=== PATIENT | female | born 1930 | race Caucasian/White ===

== ENCOUNTER 2016-04-06 12:14 | Emergency (ER) | payer MEDICARE ==
--- NOTE | 2016-04-06 13:17 | CT ---
NONCONTRAST CT OF THE BRAIN 04/06/16 INDICATION: Altered mental status. COMPARISON: Prior exam dated 06/09/15. FINDINGS: No acute infarct, hemorrhage or hydrocephalus is present. 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 Small subcortical hypodensity involving the left frontal lobe on image 18 of series 2 is stable to the prior. Skull and extracranial soft tissu es are unremarkable. IMPRESSION: 1. No acute intracranial abnormality demonstrated. 2. 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 3. Stable small hypodensity involving the subcortical white matter of the left frontal lobe pos sibly related to chronic ischemic change versus perivascular space. POS: [facility]
[2016-04-06 13:27] LABS: #Lymphocytes 0.8 thou/uL (1.20-3.40); #Monocytes 0.3 thou/uL (0.11-0.59); #Neutrophils 4.3 thou/uL (1.40-6.50); %Basophils 0.8 % (0.0-1.0); %Eosinophils 0.6 % (0.0-10.0); %Monocytes 5.5 % (0.0-10.0); %Neutrophils 79.1 % (42.0-75.0); Hemoglobin 13.5 g/dL (12.0-16.0); Mean Corpuscular HGB CONC 32.2 g/dL (32.0-36.0); Mean Corpuscular Hemoglobin 31.1 pg (27.0-31.0); Mean Corpuscular Volume 96.4 fl (81.0-99.0); Mean Platelet Volume 9.6 fL (7.4-10.4); Platelet Count 139 thou/uL (130-400); RBC Distribution Width 13.1 % (11.5-14.5); Red Blood Cell (RBC) Count 4.33 mill/uL (4.20-5.40); White Blood Cell (WBC) Count 5.4 thou/uL (4.8-10.8)
[2016-04-06 13:41] LABS: ALT (SGPT) 13 U/L (0-55); AST (SGOT) 22 U/L (5-34); Albumin 3.8 g/dL (3.4-4.8); Alkaline Phosphatase 72 U/L (40-150); Anion Gap 13 mmol/L (10-20); BUN (Urea Nitrogen) 18 mg/dL (9.8-20.1); Bilirubin, Total 0.8 mg/dL (0.2-1.2); Calc. Creatinine Clearance 0 mL/min (70-130); Calcium 9.7 mg/dL (7.8-10.44); Carbon Dioxide 32 mmol/L (23-31); Chloride 102 mmol/L (98-107); Estimated GFR-MDRD 76; Globulin 3.1 g/dL (2.4-3.5); Glucose 125 mg/dL (83-110); Potassium 3.7 mmol/L (3.5-5.1); Protein, Total 6.9 g/dL (5.8-8.1); Sodium 143 mmol/L (136-145)
[2016-04-06 13:44] LABS: Blood, Urine Moderate (Negative); Clarity Clear (Clear); Glucose, Urine (Dipstick) Negative (Negative); Leukocyte Negative (Negative); Nitrite Negative (Negative); Protein, Urine (Dipstick) 30 mg/dL (Neg-Trace)
[2016-04-06 13:46] LABS: Bilirubin Negative (Negative); Icto Negative (Negative)
[2016-04-06 13:48] LABS: Bacteria/HPF Rare-Few HPF (None Seen); Squamous Epithelial 0-3 HPF (0-3); WBC/HPF 0-3 HPF (0-3)
--- NOTE | 2016-04-06 16:30 | ERRECORD ---
[facility] EMERGENCY RECORD HPI MENTAL STATUS CHANGES (13:00 ALMO) CHIEF COMPLAINT: Patient presents for evaluation of mental status changes, Patient presents for evaluation of Began with a fall at home. HISTORIAN: History provided by patient's family, son. LOCATION: No localizing symptoms. QUALITY: [place] coma score, Eye opening: (4) - Spontaneous, Verbal: (2) - Incomprehensible sounds, Motor: (5) - Localizes Pain, GCS Total: 11, Described as similar to previous episodes, Had a fall a year ago but no mental status change. Her baseline is normal. SEVERITY: Maximum severity of symptoms moderate, Currently symptoms are moderate. TIME COURSE: Sudden onset of symptoms, just prior to arrival. ASSOCIATED WITH: unable to determine due to mental status. EXACERBATED BY: Patient's condition exacerbated by nothing. RELIEVED BY: Patient's condition relieved by nothing. RISK FACTORS: CVA/TIA risk factors, Hypertension, Subarachnoid hemorrhage risk factors, include Fall. ROS (13:06 ALMO) NOTES: Systems not reviewed; unable. PAST MEDICAL HISTORY (12:23 MDEB) MEDICAL HISTORY: Flu vaccine not up to date, Tetanus immunization up to date, Pneumococcal vaccine up to date, Past medical history includes history of hyperlipidemia, high cholesterol, Past medical history includes history of hypertension, which has been treated, Past medical history includes cardiac history, unspecified arrhythmia, Past medical history includes history of hyperlipidemia, high cholesterol, Past medical history includes skin history, SKIN ISSUE -1615. PT TAKING PREDNISONE PER , No past medical history, Flu vaccine not up to date, Tetanus not up to date, Pneumococcal vaccine not up to date, Past medical history includes history of hypertension. --16. FEMALE SURGICAL HISTORY: Surgical history of cholecystectomy. --16. PSYCHIATRIC HISTORY: No previous psychiatric history. --16. SOCIAL HISTORY: Patient has no smoking history, Patient denies alcohol use, Patient denies drug use. KNOWN ALLERGIES aspirin Iodides iodine shellfish derived CURRENT MEDICATIONS &a-1R&a+25V*p+0X*x7371T*c202B*c15G*c2P*p-0X&a-25V&a+1R Name: Justin Noe : 1930 F85 MedRec: [id number] AcctNum: [id number] Prepared: WedApr 06, 2016 16:28 by Interface Page 1 of 2 pMD [facility] EMERGENCY RECORD No recorded medications VITAL SIGNS (12:20 MDEB) VITAL SIGNS: BP: 170/95, Pulse: 78, Resp: 16, Temp: 97.6 (Tympanic), Pain: 0, O2 sat: 98 on Room Air, Time: 04/06/2016 12:20. PHYSICAL EXAM (13:06 ALMO) CONSTITUTIONAL: Vital Signs Reviewed. HEAD: Head exam included findings of head atraumatic, normocephalic. EYES: Pupils equally round and reactive to light, Extraocular muscles intact. ENT: Mouth exam normal. NECK: Trachea midline, Thyroid normal, Atraumatic, no carotid bruits, no meningeal signs, no jugular venous distention, no cervical adenopathy. RESPIRATORY CHEST: Respiratory exam included findings of no respiratory distress, Breath sounds clear. CARDIOVASCULAR: Cardiovascular exam included findings of heart rate regular rate and rhythm, Heart sounds normal, no murmurs. ABDOMEN FEMALE: Abdominal exam included findings of abdomen nontender, Bowel sounds normal, Liver normal, Spleen normal. BACK: Back exam included findings of normal inspection. NEURO: Speech, garbled, Gait normal, Nahid coma scale, GCS Total: 11, Cranial nerves intact, no focal motor deficits, NIH SS = 8. SKIN: Skin exam normal. PROBLEM LIST No recorded problems DIAGNOSIS (16:24 ALMO) FINAL: PRIMARY: ALTERED MENTAL STATUS UNSPECIFIED vs Stroke. PRESCRIPTION No recorded prescriptions DISPOSITION PATIENT: Disposition Type: Discharge, Disposition: *Discharge Home. (16:24 ALMO) Disposition Type: Transfer, Disposition: Transfer to [facility], Patient left the department. (16:26 MDEB) Morgan: JIMENA=MD Spenser, Hal MDEB=JAVED Verdugo, Alisa &a-1R&a+25V*p+0X*[id number]*c202B*c15G*c2P*p-0X&a-25V&a+1R Name: Justin Noe : 1930 F85 MedRec: [id number] AcctNum: [id number] Prepared: WedApr 06, 2016 16:28 by Interface Page 2 of 2 pMD [facility]
--- NOTE | 2016-04-06 16:36 | PICIS ---
[facility] EMERGENCY RECORD COMMUNICATIONS (15:19 AWAT) COMMUNICATIONS: Notes: DR ESPINOSA AT [facility] ER IN [place] ACCEPTS PT FOR TRANSFER AT THIS TIME. TRIAGE (12:23 MDEB) PATIENT: NAME: Justin Noe, AGE: 85, GENDER: female, : Sun 1930, TIME OF GREET: WedApr 06, 2016 12:15, PREFERRED LANGUAGE: Nepali, RACE: WHITE, ETHNICITY: Not or , FALL RISK: YES, ECODE BILLING MAP: [facility] ER, SSN: [id number], Zip Code: [address], KG WEIGHT: 47.63, PHONE: , , , PERSON ID: [id number], PCP: MD ROSE IMELDA. (12:23 MDEB) TRIAGE NOTES: PT DOESNT ANSWER QUESTIONS WELL....SON STATES SHE FELL ON KITCHEN WHILE CLEANING UP. PT DENIES PAIN , BUT SON WANTS HER CHECKED OUT FOR FX'S. PT [place] (12:23 MDEB) COMPLAINT: FALL. (12:23 MDEB) ADMISSION: URGENCY: 3 Urgent, ADMISSION SOURCE: Doctor's Office, TRANSPORT: Walk-in, BED: TRIAGE. (12:23 MDEB) PAIN: Notes: PT DENIES. (12:23 MDEB) TRIAGE SCREENING: Patient denies suicidal ideation, Patient denies presence of domestic violence. (12:23 MDEB) PROVIDERS: TRIAGE NURSE: Alisa Verdugo RN. (12:23 MDEB) VITAL SIGNS: BP 170/95, Pulse 78, Resp 16, Temp 97.6, (Tympanic), Pain 0, O2 Sat 98, on Room Air, Time 04/06/2016 12:20. (12:20 MDEB) PREVIOUS VISIT ALLERGIES: Iodides. (12:23 MDEB) KNOWN ALLERGIES aspirin Iodides iodine shellfish derived CURRENT MEDICATIONS No recorded medications VITAL SIGNS (12:20 MDEB) VITAL SIGNS: BP: 170/95, Pulse: 78, Resp: 16, Temp: 97.6 (Tympanic), Pain: 0, O2 sat: 98 on Room Air, Time: 04/06/2016 12:20. NURSING ASSESSMENT: HEAD-TO-TOE (12:23 MDEB) CONSTITUTIONAL: Patient arrives, via [facility], Gait steady, History obtained from patient, Patient appears comfortable, Patient, confused, Patient, responsive to verbal stimuli, Patient is, oriented to person, Skin warm, Skin dry, Skin normal in color, Mucous membranes pink, Mucous membranes moist, Patient is well-groomed, Patient complains of L SHOULDER PAIN PER EMS, PT DENIES PAIN - MOVED HERSELF OVER TO CART FROM [facility]. PAIN: Pain level 0 No Hurt, using faces pain scoring. SKIN: Skin assessment findings include skin warm, Skin dry, Skin &a-1R&a+25V*p+0X*x0838X*c202B*c15G*c2P*p-0X&a-25V&a+1R Name: Justin Noe : 1930 F85 MedRec: [id number] AcctNum: [id number] Prepared: WedApr 06, 2016 16:28 by Interface Page 1 of 7 pMD [facility] EMERGENCY RECORD normal in color. NEURO: Pupils equally round and reactive to light, Left pupil 2 mm in size, Right pupil 2 mm in size, Able to close eyes, Face symmetrical, Speech normal, GCS:, Eye opening: (4) - Spontaneous, Verbal: (5) - Oriented/conversive, Motor: (6) - Obeys commands/Spontaneous, GCS Total: 15, Hand grasps equal. ENT: Ear assessment findings include ear normal to inspection, Nasal assessment findings include nose normal to inspection, Mouth and throat assessment findings include mouth inspection normal, Mucous membranes pink, and moist, Able to swallow, Speech normal. NECK: Neck assessment findings include trachea midline. RESPIRATORY/CHEST: Breath sounds clear, Respiratory assessment findings include respiratory effort easy, Respirations regular, Conversing normally, Neck and chest exam findings include trachea midline, Chest expansion equal, Chest movement symmetrical. CARDIOVASCULAR: Cardiovascular assessment findings include heart rate normal, Heart rhythm, sinus arrhythmia. ABDOMEN: Abdomen assessment findings include abdomen symmetrical, Abdomen soft. GENITOURINARY FEMALE: Notes: DEFERRED AT THIS TIME. LEFT UPPER EXTREMITY: Left upper extremity assessment findings include capillary refill less than 2 seconds, Skin color normal to hand, Skin temperature to hand warm, Distal sensation intact, Muscle tone normal. RIGHT UPPER EXTREMITY: Right upper extremity assessment findings include capillary refill less than 2 seconds, Skin color normal to hand, Skin temperature to hand warm, Distal sensation intact, Muscle tone normal. LEFT LOWER EXTREMITY: Left lower extremity assessment findings include capillary refill less than 2 seconds, Skin color normal, Skin temperature warm, Distal sensation intact, Muscle tone normal. RIGHT LOWER EXTREMITY: Right lower extremity assessment findings include capillary refill less than 2 seconds, Skin color normal, Skin temperature warm, Distal sensation intact, Muscle tone normal. PSYCH/SOCIAL: Psychiatric/social assessment findings include affect, flat. NOTES: Emotional support needed and given, Patient tolerated procedure well. SAFETY: Side rails up, Cart/Stretcher in lowest position, Family at bedside, Call light within reach, Hospital ID band on. NURSING PROCEDURE: SIGNALMAN (12:23 BEATRIZ) PATIENT IDENTIFIER: Patient actively involved in identification process, Patient's identity verified by hospital ID bracelet, Patient's identity verified by family member. SIGNALMAN: Cardiac monitoring indicated for FALL, Patient placed on monitor technician, Heart rate: 76, showing sinus arrhythmia, Patient placed on non-invasive blood pressure monitor, Patient placed on continuous pulse oximetry. FOLLOW-UP: After procedure, alarms set and on, After procedure, &a-1R&a+25V*p+0X*[id number]*c202B*c15G*c2P*p-0X&a-25V&a+1R Name: Justin Noe : 1930 F85 MedRec: [id number] AcctNum: [id number] Prepared: WedApr 06, 2016 16:28 by Interface Page 2 of 7 pMD [facility] EMERGENCY RECORD patient tolerating monitoring. NOTES: Emotional support needed and given, Patient tolerated procedure well. SAFETY: Side rails up, Cart/Stretcher in lowest position, Family at bedside, Call light within reach, Hospital ID band on. NURSING PROCEDURE: IV (15:55 AWAT) PATIENT IDENITIFIER: Patient actively involved in identification process, Patient's identity verified by hospital ID bracelet, Patient's identity verified by family member. IV SITE 1: IV therapy indicated for CVA, IV established, to the right forearm, using a 20 gauge catheter, in one attempt, IV site prepped with chloraprep, Saline lock established, Flushed with normal saline (mls): 10. FOLLOW-UP SITE 1: After procedure, sterile transparent dressing applied. NOTES: Emotional support needed and given, Patient tolerated procedure well. SAFETY: Side rails up, Cart/Stretcher in lowest position, Family at bedside, Call light within reach, Hospital ID band on, Physician notified of above findings. NURSING PROCEDURE: URINE COLLECTION (13:15 BEATRIZ) PATIENT IDENTIFIER: Patient actively involved in identification process, Patient's identity verified by patient stating name, Patient's identity verified by hospital ID bracelet. URINE COLLECTION FEMALE: Urine collection indicated for CONFUSION, Urine collected by straight cath, using an 8fr catheter kit, in one attempt, urine yellow in color, and cloudy, Specimen collected, labeled in the presence of the patient and sent to lab, Specimen obtained for culture labeled in the presence of the patient and sent to lab. ORDER DETAILS Order Name: CBC with Differential, Status: Active, Time: 12:42 04/06/2016, User: JIMENA, - Ordered for: MD Dueñas Alberto, - Entered by: MD Dueñas Alberto - WedApr 06, 2016 12:42, - Quantity: 1, Order Name: Comprehensive Metabolic Panel, Status: Active, Time: 12:44 04/06/2016, User: JIMENA, - Ordered for: MD Dueñas Alberto, - Entered by: MD Dueñas Alberto - WedApr 06, 2016 12:44, - Quantity: 1, Order Name: CT Brain WO Con, Status: Active, Time: 12:44 04/06/2016, User: JIMENA, - Ordered for: MD Dueñas Alberto, - Entered by: MD Dueñas Alberto - WedApr 06, 2016 12:44, - Quantity: 1, &a-1R&a+25V*p+0X*m2330U*c202B*c15G*c2P*p-0X&a-25V&a+1R Name: Justin Noe : 1930 F85 MedRec: [id number] AcctNum: [id number] Prepared: WedApr 06, 2016 16:28 by Interface Page 3 of 7 pMD [facility] EMERGENCY RECORD Order Name: EKG 12 Lead in Emergency Room, Status: Active, Time: 13:12 04/06/2016, User: JIMENA, - Ordered for: MD Dueñas Alberto, - Entered by: MD Dueñas Alberto - [facility] Apr 06, 2016 13:12, - Quantity: 1, Order Name: SALINE LOCK, Status: Active, Time: 16:03 04/06/2016, User: EMIL, - Ordered for: MD Dueñas Alberto, - Entered by: JAVED Silva Adam - [facility] Apr 06, 2016 16:03, - Quantity: 1, Order Name: Urinalysis w/ Rflx Microscopic, Status: Active, Time: 12:44 04/06/2016, User: JIMENA, - Ordered for: MD Dueñas Alberto, - Entered by: MD Dueñas Alberto - [facility] Apr 06, 2016 12:44, - Quantity: 1. HPI MENTAL STATUS CHANGES (13:00 ALMDerick) CHIEF COMPLAINT: Patient presents for evaluation of mental status changes, Patient presents for evaluation of Began with a fall at home. HISTORIAN: History provided by patient's family, son. LOCATION: No localizing symptoms. QUALITY: [place] coma score, Eye opening: (4) - Spontaneous, Verbal: (2) - Incomprehensible sounds, Motor: (5) - Localizes Pain, GCS Total: 11, Described as similar to previous episodes, Had a fall a year ago but no mental status change. Her baseline is normal. SEVERITY: Maximum severity of symptoms moderate, Currently symptoms are moderate. TIME COURSE: Sudden onset of symptoms, just prior to arrival. ASSOCIATED WITH: unable to determine due to mental status. EXACERBATED BY: Patient's condition exacerbated by nothing. RELIEVED BY: Patient's condition relieved by nothing. RISK FACTORS: CVA/TIA risk factors, Hypertension, Subarachnoid hemorrhage risk factors, include Fall. ROS (13:06 ALM) NOTES: Systems not reviewed; unable. PAST MEDICAL HISTORY (12:23 MDANA) MEDICAL HISTORY: Flu vaccine not up to date, Tetanus immunization up to date, Pneumococcal vaccine up to date, Past medical history includes history of hyperlipidemia, high cholesterol, Past medical history includes history of hypertension, which has been treated, Past medical history includes cardiac history, unspecified arrhythmia, Past medical history includes history of hyperlipidemia, high cholesterol, Past medical history includes skin history, SKIN ISSUE 10-21-14. PT TAKING PREDNISONE PER , No past medical history, Flu vaccine not up to date, Tetanus not up to date, &a-1R&a+25V*p+0X*t2213W*c202B*c15G*c2P*p-0X&a-25V&a+1R Name: Justin Noe : 1930 F85 MedRec: [id number] AcctNum: [id number] Prepared: WedApr 06, 2016 16:28 by Interface Page 4 of 7 pMD [facility] EMERGENCY RECORD Pneumococcal vaccine not up to date, Past medical history includes history of hypertension. 06-08-15. FEMALE SURGICAL HISTORY: Surgical history of cholecystectomy. 06-08-15. PSYCHIATRIC HISTORY: No previous psychiatric history. 06-08-15. SOCIAL HISTORY: Patient has no smoking history, Patient denies alcohol use, Patient denies drug use. PHYSICAL EXAM (13:06 ALMO) CONSTITUTIONAL: Vital Signs Reviewed. HEAD: Head exam included findings of head atraumatic, normocephalic. EYES: Pupils equally round and reactive to light, Extraocular muscles intact. ENT: Mouth exam normal. NECK: Trachea midline, Thyroid normal, Atraumatic, no carotid bruits, no meningeal signs, no jugular venous distention, no cervical adenopathy. RESPIRATORY CHEST: Respiratory exam included findings of no respiratory distress, Breath sounds clear. CARDIOVASCULAR: Cardiovascular exam included findings of heart rate regular rate and rhythm, Heart sounds normal, no murmurs. ABDOMEN FEMALE: Abdominal exam included findings of abdomen nontender, Bowel sounds normal, Liver normal, Spleen normal. BACK: Back exam included findings of normal inspection. NEURO: Speech, garbled, Gait normal, [place] coma scale, GCS Total: 11, Cranial nerves intact, no focal motor deficits, NIH SS = 8. SKIN: Skin exam normal. EVENTS TRANSFER: Triage to Emergency Triage. (12:24 MDEB) Emergency Triage to Main ED -05. (12:24 MDEB) Emergency Main ED -05 to Holding. (16:09 JPER) Removed from Emergency Holding. (16:26 MDEB) PROBLEM LIST No recorded problems DIAGNOSIS (16:24 ALMO) FINAL: PRIMARY: ALTERED MENTAL STATUS UNSPECIFIED vs Stroke. DISPOSITION PATIENT: Disposition Type: Discharge, Disposition: *Discharge Home. (16:24 ALMO) Disposition Type: Transfer, Disposition: Transfer to [facility], Patient left the department. (16:26 BEATRIZ) &a-1R&a+25V*p+0X*f5762S*c202B*c15G*c2P*p-0X&a-25V&a+1R Name: Justin Noe : 1930 F85 MedRec: [id number] AcctNum: [id number] Prepared: WedApr 06, 2016 16:28 by Interface Page 5 of 7 pMD [facility] EMERGENCY RECORD PRESCRIPTION No recorded prescriptions IMAGING *EKG: Image captured from scanner. (14:16 AWAT) Page 2 added. Image captured from scanner. (14:18 AWAT) *MEMORANDUM OF TRANSFER: Image captured from scanner. (15:39 AWAT) EMS TRANSPORT ORDERS: Image captured from scanner. (15:39 AWAT) CONSENTS: Image captured from scanner. (15:39 AWAT) RESULTS (15:18 BEATRIZ) LABORATORY: Urine Microscopic Collection DT: WedApr 06, 2016 13:43, See comment below , Comment cath specimen , *RBC/HPF 7-10 - H HPF, Range (0-3), WBC/HPF 0-3 HPF, Range (0-3), Squamous Epithelial 0-3 HPF, Range (0-3), Bacteria/HPF Rare-Few HPF, Range (None Seen). Urinalysis w/ Rflx Microscopic Collection DT: WedApr 06, 2016 13:43, See comment below , Comment cath specimen , Color Yellow , Range (Yellow), Clarity Clear , Range (Clear), Specific [place], Urine 1.020 , Range (1.005-1.030), pH, Urine 7.0 , Range (5.0-9.0), Leukocyte Negative , Range (Negative), Nitrite Negative , Range (Negative), *Protein, Urine (Dipstick) 30 - H mg/dL, Range (Neg-Trace), Glucose, Urine (Dipstick) Negative mg/dL, Range (Negative), Ketone, Urine Negative mg/dL, Range (Negative), *Urobilinogen 2.0 - H mg/dL, Range (0.2-1.0), Bilirubin Negative , Range (Negative), , *Blood, Urine Moderate - H , Range (Negative). Comprehensive Metabolic Panel Collection DT: WedApr 06, 2016 13:21, Sodium 143 mmol/L, Range (136-145), Potassium 3.7 mmol/L, Range (3.5-5.1), Chloride 102 mmol/L, Range (98-107), *Carbon Dioxide 32 - H mmol/L, Range (23-31), Anion Gap 13 mmol/L, Range (10-20), BUN (Urea Nitrogen) 18 mg/dL, Range (9.8-20.1), Creatinine 0.73 mg/dL, Range (0.6-1.1), Estimated GFR-MDRD 76 , Reference Range for Estimated GFR: Greater than 90, mL/min/1.73 m2 NOTE: The MDRD equation has not been validated for use, with the elderly (over 70 years of age), women, patients with, serious comorbid condition or persons with extremes of body size, muscle, mass, or nutritional status. , *Glucose 125 - H mg/dL, Range (83-110), &a-1R&a+25V*p+0X*j0785J*c202B*c15G*c2P*p-0X&a-25V&a+1R Name: Justin Noe : 1930 F85 MedRec: [id number] AcctNum: [id number] Prepared: WedApr 06, 2016 16:28 by Interface Page 6 of 7 pMD [facility] EMERGENCY RECORD Calcium 9.7 mg/dL, Range (7.8-10.44), Bilirubin, Total 0.8 mg/dL, Range (0.2-1.2), Protein, Total 6.9 g/dL, Range (5.8-8.1), NOTE: Plasma values are generally 0.3 to 0.5 g/dL higher than serum values, due to the presence of fibrinogen. , Albumin 3.8 g/dL, Range (3.4-4.8), Globulin 3.1 g/dL, Range (2.4-3.5), Alb/Glob Ratio 1.2 g/dL, Range (1.2-2.2), Alkaline Phosphatase 72 U/L, Range (40-150), AST (SGOT) 22 U/L, Range (5-34), ALT (SGPT) 13 U/L, Range (0-55). CBC with Differential Collection DT: WedApr 06, 2016 13:21, White Blood Cell (WBC) Count 5.4 thou/uL, Range (4.8-10.8), Red Blood Cell (RBC) Count 4.33 mill/uL, Range (4.20-5.40), Hemoglobin 13.5 g/dL, Range (12.0-16.0), Hematocrit 41.7 %, Range (36.0-47.0), Mean Corpuscular Volume 96.4 fl, Range (81.0-99.0), *Mean Corpuscular Hemoglobin 31.1 - H pg, Range (27.0-31.0), Mean Corpuscular HGB CONC 32.2 g/dL, Range (32.0-36.0), RBC Distribution Width 13.1 %, Range (11.5-14.5), Platelet Count 139 thou/uL, Range (130-400), Mean Platelet Volume 9.6 fL, Range (7.4-10.4), *%Neutrophils 79.1 - H %, Range (42.0-75.0), *%Lymphocytes 14.0 - L %, Range (21.0-51.0), %Monocytes 5.5 %, Range (0.0-10.0), %Eosinophils 0.6 %, Range (0.0-10.0), %Basophils 0.8 %, Range (0.0-1.0), #Neutrophils 4.3 thou/uL, Range (1.40-6.50), *#Lymphocytes 0.8 - L thou/uL, Range (1.20-3.40), #Monocytes 0.3 thou/uL, Range (0.11-0.59), #Eosinphils 0.0 thou/uL, Range (0.0-0.7), #Basophils 0.0 thou/uL, Range (0.0-0.2). Morgan: JIMENA=MD Spenser, Hal STEIN=JAVED Silva, Ray SINGER=JAVED Clemens, Shell HENDERSON=JAVED Verdugo, Alisa &a-1R&a+25V*p+0X*z4286D*c202B*c15G*c2P*p-0X&a-25V&a+1R Name: Justin Noe : 1930 F85 MedRec: [id number] AcctNum: [id number] Prepared: Margarita Apr 06, 2016 16:28 by Interface Page 7 of 7 pMD [facility]TDD
== END 2016-04-06 15:59 | disposition short-term general hospital (02) ==
LOC: MADERS 12:14
DX: R41.82 Altered mental status, unspecified (principal); I10 Essential (primary) hypertension; E78.5 Hyperlipidemia, unspecified; E78.00 Pure hypercholesterolemia, unspecified
CPT/HCPCS: 36415; 51701; 70450; 80053; 81003; 81015; 85025; 93005; A4353

== ENCOUNTER 2016-08-13 08:37 | Outpatient (CLI) | payer MEDICARE ==
--- NOTE | 2016-08-13 12:20 | ULT ---
PELVIC ULTRASOUND: Date: 08/13/16 HISTORY: atrophic vaginitis TECHNIQUE: Real-time Haynes scale and color Doppler evaluation of the pelvis was performed via transabdominal and transvaginal approach. FINDINGS: There is hemorrhage distending the endometrial canal. There is also abnormal wall nodularity near th e body of the uterus. There is also abnormal thickening of the cervix and nodularity. There is abnormal expansion of the right fallopian tube which is also filled with hemorrhage. No abnormal appearing tissue is present. IMPRESSION: Hematometra with abnormal wall nodularity of the endometrial cavity which is distended with hemorrha ge extending into the right fallopian tube. 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 MRI of the pelvis with and without contrast may be beneficial in this patient. Also, dir ect visualization and biopsy is recommended. Gynecologic consultation recommended. CODE CR. POS: TING
== END 2016-08-13 08:38 | disposition home or self-care (01) ==
LOC: MADULT 08:37
PROVIDERS: ATTEND Family Medicine
DX: N95.2 Postmenopausal atrophic vaginitis (principal); N85.7 Hematometra
CPT/HCPCS: 76856